=== PATIENT | female | born 1985 | race Caucasian/White ===

== ENCOUNTER 2024-06-12 09:56 | Day surgery (SDC) | payer BC ==
[2024-06-12] VITALS (9 sets, daily range): BP systolic 98–116; BP diastolic 56–69; PULSE 74–84; TEMP 97.6–98.1
[~2024-06-12] VITALS: Ht 172.7 cm; Wt 69.8 kg
[~2024-06-12 09:56] MED LIST: LR 1,000 ML IV SCH
[2024-06-12] MEDS ORDERED: KEPPRA 500MG500 MG PO (10:26)
[2024-06-12] MEDS ORDERED: DESYREL 50MG50 MG PO (10:27)
[2024-06-12] MEDS ORDERED: CELEXA40 MG PO (10:27)
[2024-06-12] MEDS ORDERED: BRIVIACT100 MG PO (10:28)
[2024-06-12] MEDS ORDERED: ARMOUR THYROID60 MG PO (10:28)
[2024-06-12] MEDS ORDERED: ATIVAN 1MG T1 MG/TAB PO (10:29)
--- NOTE | 2024-06-12 10:57 | NUR ---
Patient admitted to [facility] [place] [facility]. Consent signed. Admission assessments completed. Pt with seizure history. Family brought to bedside. 20G IV inserted into RFA by JAKOB Finley. Lab here at this time for lab draw. VSS. Questions answered. Medications, allergies, and pharmacy confirmed. Pt voids urine. Cart in low position. Call light within reach. Glasses on.
[2024-06-12] MEDS ORDERED: fentaNYL 50 MCG/ML 5 ML VIAL ONE ×2 (11:44)
[2024-06-12] MEDS ORDERED: Ondansetron 4 MG/2 ML VIAL ONE (11:45)
[2024-06-12] MEDS ORDERED: NS 10 ML IV ONE (11:45)
[2024-06-12] MEDS ORDERED: Ketorolac 60 MG/2 ML VIAL IM ONE (11:45)
[2024-06-12] MEDS ORDERED: dexAMETHasone 10 MG/ML VIAL ONE (11:45)
[2024-06-12] MEDS ORDERED: Rocuronium 50 MG/5 ML Multi-Dose VIAL ONE (11:50)
--- NOTE | 2024-06-12 12:07 | NUR ---
Recreation Teacher x2 try for lab specimen without success. this nurse able to get specimen from right wrist, sent to lab. HCG pending, Dr Hutchison and Armando DELCID aware, will update them as soon as test results. They instruct OR Nurse to take patient back to OR and will start pending result. Belongings taken to PACU, labeled. PACU nurses aware of seizure history.
[2024-06-12] MEDS ORDERED: BUPivacaine PF 0.5% w EPI (1:200,000) 10 ML VIAL IJ ONE (12:28)
[2024-06-12] MEDS ORDERED: Topical Skin Adhesive 1 EACH (1 ML) TOP ONE (12:28)
[2024-06-12] MEDS ORDERED: Lidocaine 2% (20 MG/ML) 20 ML UROJET TOP ONE (12:28)
[2024-06-12] MEDS ORDERED: HYDROmorphone 1 MG/1 ML SYRINGE [PACU/SDC ONLY] IV PRN (13:15)
[2024-06-12] MEDS ORDERED: Meperidine 50 MG/ML 1 ML VIAL IV PRN (13:15)
[2024-06-12] MEDS ORDERED: Scopolamine 1 MG Delivered 3-Day PATCH TD SCH (13:15)
[2024-06-12] MEDS ORDERED: fentaNYL 50 MCG/ML 1 ML SYRINGE/VIAL [PACU/SDC ONLY] IV PRN (13:15)
[2024-06-12] MEDS ORDERED: Docusate Sodium 100 MG CAP PO SCH (14:40)
[2024-06-12] MEDS ORDERED: Ondansetron 4 MG/2 ML VIAL IV PRN (14:45)
[2024-06-12] MEDS ORDERED: Acetaminophen 500 MG TAB PO SCH (14:45)
[2024-06-12] MEDS ORDERED: oxyCODONE 5 MG TAB PO PRN (14:45)
[2024-06-12] MEDS ORDERED: Ketorolac 15 MG/ML VIAL IV ONE (14:45)
[2024-06-12] MEDS ORDERED: Naloxone 0.4 MG/ML VIAL IV PRN (14:45)
--- NOTE | 2024-06-12 15:30 | NUR ---
PATIENT TO ROOM 222 FOR POSTOP CARE. PATIENT ORIENTED TO ROOM AND UPDATED ON PLAN OF CARE
--- NOTE | 2024-06-12 16:30 | NUR ---
PATIENT REQUESTING TO AMBUALTE TO RESTROOM TO VOID. PATIENT ASSISTED TO EDGE OF BED TO DANGLE, PATIENT TOLERATES WELL. PATIENT ASSISTED TO STAND AND ABLE TO BEND KNEES WIHTOU DIFFICULTY, PATIENT DOES NOT REPORT DIZZINESS. PATIENT AMBULATES TO THE RESTROOM WITH THIS RN ON STANDBY AND IS ABLE TO VOID. PATIENT CHANGES PAD AND IS ASSISTED BACK INTO BED.
--- NOTE | 2024-06-12 18:30 | NUR ---
1830 WAITING FOR SUPPER AND THEN WANTS TO GO HOME. INSTRUCTED TO CALL AFTER EATING TO GET UP TO THE BATHROOM.. NO C/O PAIN AT THIS TIME 184 SUPPER TAKEN WELL. UP TO BR WITH LITTLE ASSIST AND VOIDED 100CC. NO VAG DISCHARGE NOTED. INT DCD. DISMISS INSTRUCTIONS GIVEN 1900 HOME PER W/C ACC BY WITH DISCHARGE INSTRUCTIONS
[2024-06-12] MEDS ORDERED: Ibuprofen 800 MG TAB PO SCH (20:35)
== END 2024-06-12 19:00 | disposition home or self-care (01) ==
LOC: SDCO 09:56
PROVIDERS: Obstetrics & Gynecology
DX: N80.03 Adenomyosis of the uterus (principal); N92.0 Excessive and frequent menstruation with regular cycle; N80.9 Endometriosis, unspecified
CPT/HCPCS: J0690; J1100; J1885; J2405; J2704; J3010; J7120